=== PATIENT | female | born 1965 | race Caucasian/White ===

== ENCOUNTER 2024-07-21 10:28 | Outpatient (OUT) | payer BC, SELFPAY ==
--- NOTE | 2024-07-21 | XR_ITS ---
[address] [address] Patient Name: SAI COLLAZO MRN: [id number] date: 1965 Sex: F Assigned Patient Location: [facility] Current Patient Location: Accession/Order Number: [id number] Exam Date: 07/21/2024 10:32 Report Date: 07/22/2024 06:57 At the request of: WINSOME NAVARRETE Procedure: XR foot RT min 3V PROCEDURE: XR ankle RT min 3V, XR foot RT min 3V HISTORY: RIGHT ANKLE PAIN ; pain in arch; no known injury COMPARISON: None. FINDINGS: BONES:Suspect slight narrowing of the ankle joint space. Mild flattening of plantar arch. Calcaneal plantar spur. Narrowing of the first metatarsophalangeal joint. SOFT TISSUES:No visible soft tissue swelling. EFFUSION:None visible. OTHER: Negative. XR/XR foot RT min 3V IMPRESSION: 1. 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 2. Slight flattening of plantar arch and degenerative calcaneal plantar spur. Electronically authenticated by: COLT RENEE Date: 07/22/2024 06:57
--- NOTE | 2024-07-21 | XR_ITS ---
The [address] [address] Patient Name: SAI COLLAZO MRN: [id number] date: 1965 Sex: F Assigned Patient Location: [facility] Current Patient Location: Accession/Order Number: [id number] Exam Date: 07/21/2024 10:32 Report Date: 07/22/2024 06:57 At the request of: WINSOME NAVARRETE Procedure: XR ankle RT min 3V PROCEDURE: XR ankle RT min 3V, XR foot RT min 3V HISTORY: RIGHT ANKLE PAIN ; pain in arch; no known injury COMPARISON: None. FINDINGS: BONES:Suspect slight narrowing of the ankle joint space. Mild flattening of plantar arch. Calcaneal plantar spur. Narrowing of the first metatarsophalangeal joint. SOFT TISSUES:No visible soft tissue swelling. EFFUSION:None visible. OTHER: Negative. XR/XR ankle RT min 3V IMPRESSION: 1. 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 2. Slight flattening of plantar arch and degenerative calcaneal plantar spur. Electronically authenticated by: COLT RENEE Date: 07/22/2024 06:57
== END 2024-07-21 10:29 | disposition home or self-care (01) ==
PROVIDERS: Visit Provider Podiatrist Foot & Ankle Surgery
DX: M25.571 Pain in right ankle and joints of right foot (principal); M19.071 Primary osteoarthritis, right ankle and foot; M77.31 Calcaneal spur, right foot
CPT/HCPCS: 73610; 73630